=== PATIENT | male | born 1985 | race Caucasian/White ===

== ENCOUNTER 2020-10-21 00:13 | Emergency (ER) | payer OTHER ==
--- NOTE | 2020-10-21 00:15 | EDM.PDOC ---
ED HPI GENERAL MEDICAL PROBLEM - General Stated Complaint: LT KNEE PAIN Time Seen by Provider: 10/21/20 00:13 Source of Information: Reports: Patient History Limitations: Reports: No Limitations - History of Present Illness INITIAL COMMENTS - FREE TEXT/NARRATIVE: 34-year-old male past medical history rheumatoid arthritis presents for left knee pain. Patient has been having pain for roughly the last 3 weeks. He states that this feels like a typical rheumatoid arthritis flare and denies any injury to the knee. He notes that he typically takes prednisone for rheumatoid arthritis flares but he is traveling currently and does not have access to his medication. Denies any other complaints Left Knee Pain Score (Numeric/FACES): 9 - Related Data Allergies Allergy/AdvReac Type Severity Reaction Status Date / Time No Known Allergies Allergy Verified 10/21/20 00:20 Home Meds: Home Meds predniSONE 20 mg PO WITHBREAKFAST 10/21/20 [History] predniSONE [Prednisone] 10 mg PO DAILY #20 tablet 10/21/20 [Rx] ED ROS GENERAL - Review of Systems Review Of Systems: Comprehensive ROS is negative, except as noted in HPI. ED EXAM, GENERAL - Physical Exam Exam: See Below Exam Limited By: No Limitations General Appearance: Alert, WD/WN, No Apparent Distress Throat/Mouth: Normal Voice, No Airway Compromise Head: Atraumatic, Normocephalic Neck: Normal Inspection Respiratory/Chest: No Respiratory Distress, No Accessory Muscle Use Cardiovascular: Normal Peripheral Pulses, Regular Rate, Rhythm Extremities: Normal Inspection Neurological: Alert, Normal Gait Psychiatric: Normal Affect, Normal Mood Skin Exam: Warm, Dry, Intact, Normal Color Course - Vital Signs Last Recorded V/S: Last Vital Signs Temp 97.5 F 10/21/20 00:22 Pulse 97 10/21/20 00:22 Resp 18 10/21/20 00:22 BP 106/77 10/21/20 00:22 Pulse Ox 100 10/21/20 00:22 - Orders/Labs/Meds Meds: Medications Discontinued Medications Generic Name Dose Route Start Last Admin Trade Name Freq PRN Reason Stop Dose Admin Ketorolac Tromethamine 30 mg 10/21/20 00:30 Ketorolac 30 Mg/Ml Sdv IM 10/21/20 00:31 ONETIME ONE Prednisone 40 mg 10/21/20 00:30 Prednisone 20 Mg Tab PO 10/21/20 00:31 ONETIME ONE - Re-Assessments/Exams Free Text/Narrative Re-Assessment/Exam: 10/21/20 00:32 We will give a dose of prednisone Toradol now. Will discharge with a prescription for prednisone. Departure - Departure Time of Disposition: 00:32 Disposition: Home, Self-Care 01 Condition: Good Clinical Impression: Rheumatoid arthritis Qualifiers: Rheumatoid arthritis location: unspecified site Rheumatoid factor presence: unspecified presence Qualified Code(s): M06.9 - Rheumatoid arthritis, unspecified - Discharge Information Prescriptions: predniSONE [Prednisone] 10 mg PO DAILY #20 tablet Instructions: Arthritis Additional Instructions: The following information is given to patients seen in the emergency department who are being discharged to home. This information is to outline your options for follow-up care. We provide all patients seen in our emergency department with a follow-up referral. The need for follow-up, as well as the timing and circumstances, are variable depending upon the specifics of your emergency department visit. If you don't have a primary care physician on staff, we will provide you with a referral. We always advise you to contact your personal physician following an emergency department visit to inform them of the circumstance of the visit and for follow-up with them and/or the need for any referrals to a consulting specialist. The emergency department will also refer you to a specialist when appropriate. This referral assures that you have the opportunity for follow-up care with a specialist. All of these measure are taken in an effort to provide you with optimal care, which includes your follow-up. Under all circumstances we always encourage you to contact your private physician who remains a resource for coordinating your care. When calling for follow-up care, please make the office aware that this follow-up is from your recent emergency room visit. If for any reason you are refused follow-up, please contact the [facility] Emergency Department at and asked to speak to the emergency department charge nurse. Please follow up with your primary care physician. If you do not have a primary care physician, see below: [facility] [address] [place] [id number] [facility] [address] [place] [id number] [facility] [address] [place] [id number] Sepsis Event Note (ED) - Focused Exam Vital Signs: Vital Signs Temp Pulse Resp BP Pulse Ox 10/21/20 00:22 97.5 F 97 18 106/77 100
[2020-10-21] MEDS ORDERED: predniSONE 20 MG Tab PO ONE (00:30)
[2020-10-21] MEDS ORDERED: Ketorolac 30 MG/ML SDV IM ONE (00:30)
== END 2020-10-21 01:13 | disposition home or self-care (01) ==
LOC: MW.ED 00:13
DX: M06.9 Rheumatoid arthritis, unspecified (principal)
CPT/HCPCS: 96372; 99283; A9270; J1885